=== PATIENT | male | born 1995 | race Two or more races ===

== ENCOUNTER 2021-08-13 13:26 | Emergency (ER) | payer OTHER ==
[~2021-08-13] VITALS: Ht 175.3 cm; Wt 70.0 kg
[2021-08-13] MEDS ORDERED: TETANUS, DIPHTHERIA, PERTUSSIS VAC/PF 0.5ML (>10YR OLD) IM ONE (14:15)
[2021-08-13] MEDS ORDERED: SODIUM CHLORIDE 0.9% 1,000 ML IV ONE (14:15)
[2021-08-13] MEDS ORDERED: CEFAZOLIN 1000MG PREMIX 50 ML IV ONE (14:15)
[2021-08-13 14:37] VITALS: BP 126/86
== END 2021-08-13 15:07 | disposition left against medical advice (07) ==
LOC: ER 13:43
DX: T23.201A Burn of second degree of right hand, unspecified site, initial encounter (principal); F79 Unspecified intellectual disabilities; T52.8X1A Toxic effect of other organic solvents, accidental (unintentional), initial encounter; Y93.89 Activity, other specified; Y92.018 Other place in single-family (private) house as the place of occurrence of the external cause
CPT/HCPCS: 16020; 99283; J7030